=== PATIENT | male | born 1995 | race African-American/Black ===

== ENCOUNTER 2019-11-10 20:05 | Emergency (ER) | payer MEDICAID, OTHER ==
[~2019-11-10] VITALS: Ht 175.3 cm; Wt 61.2 kg
[2019-11-10 20:29] VITALS: BP 133/90
[2019-11-10] MEDS ORDERED: LORazepam 0.5 MG TAB PO ONE (22:30)
[2019-11-10 22:53] LABS: Basophils # (auto) 0.1 10 ^3/uL (0-0.2); Basophils % (auto) 2.1 % (0.0-2.0); Eosinophils # (auto) 0.1 10 ^3/uL (0-0.8); Eosinophils % (auto) 2.1 % (0.0-7.0); Hematocrit 44.1 % (41.0-53.0); Hemoglobin 15.3 g/dL (13.5-17.5); Lymphocytes # (auto) 1.4 10 ^3/uL (0.4-5.4); Lymphocytes % (auto) 31.8 % (10.0-50.0); Mean Corpuscular Hemoglobin 31.6 pg (28.0-32.0); Mean Corpuscular Hgb Conc. 34.6 g/dL (32.0-36.0); Mean Corpuscular Volume 91.3 fL (80.0-100.0); Monocytes # (auto) 0.6 10 ^3/uL (0-1.3); Monocytes % (auto) 13.4 % (0.0-12.0); Neutrophils # (auto) 2.3 10 ^3/uL (1.6-8.6); Neutrophils % (auto) 50.6 % (37.0-80.0); Nucleated Red Blood Cells % 0.2 %; Platelet Count (auto) 317 10^3/uL (140-450); Red Blood Cells 4.83 10^6/uL (4.5-5.90); Red Cell Distribution Width 11.9 % (11.8-14.3); White Blood Cell 4.5 10^3/uL (4.4-10.8)
[2019-11-10 23:11] LABS: Albumin 4.1 g/dL (3.4-5.0); Anion Gap 3 (5-15); Blood Urea Nitrogen 20 mg/dL (7-18); Calcium 9.5 mg/dL (8.5-10.1); Carbon Dioxide 30 mmol/L (21-32); Chloride 105 mmol/L (98-107); Potassium 3.6 mmol/L (3.5-5.1); Sodium 138 mmol/L (136-145)
[2019-11-10 23:19] LABS: Alanine Aminotransferase 24 U/L (16-61); Alkaline Phosphatase 90 U/L (45-117); Aspartate Aminotransferase 24 U/L (15-37); BUN/Creatinine Ratio 17.9; Bilirubin, Total 0.7 mg/dL (0.2-1.0); GFR African American 103 mL/min; GFR Non-African American 85 mL/min; Glucose 82 mg/dL (74-106); Total Protein 7.8 g/dL (6.4-8.2)
== END 2019-11-11 00:02 | disposition home or self-care (01) ==
LOC: ER 20:08
DX: F15.23 Other stimulant dependence with withdrawal (principal); F10.10 Alcohol abuse, uncomplicated; F41.9 Anxiety disorder, unspecified; J45.909 Unspecified asthma, uncomplicated; F32.9 Major depressive disorder, single episode, unspecified; Y90.9 Presence of alcohol in blood, level not specified
CPT/HCPCS: 36415; 71045; 80053; 84484; 85025; 93005

== ENCOUNTER 2021-09-27 10:53 | Emergency (ER) | payer MEDICAID ==
[~2021-09-27] VITALS: Ht 177.8 cm; Wt 2.6 kg
[2021-09-27 10:55] VITALS: BP 94/66
== END 2021-09-27 18:55 | disposition left against medical advice (07) ==
LOC: ER 10:53
DX: J02.9 Acute pharyngitis, unspecified (principal); Z53.21 Procedure and treatment not carried out due to patient leaving prior to being seen by health care provider

== ENCOUNTER 2022-09-11 14:11 | Emergency (ER) | payer MEDICAID ==
[~2022-09-11] VITALS: Ht 177.8 cm; Wt 68.7 kg
[2022-09-11 16:03] LABS: Basophils # (auto) 0.1 10 ^3/uL (0-0.2); Basophils % (auto) 0.9 % (0.0-2.0); Eosinophils # (auto) 0.1 10 ^3/uL (0-0.8); Eosinophils % (auto) 2.1 % (0.0-7.0); Hematocrit 44.4 % (41.0-53.0); Hemoglobin 14.9 g/dL (13.5-17.5); Lymphocytes % (auto) 29.9 % (10.0-50.0); Mean Corpuscular Hemoglobin 29.8 pg (28.0-32.0); Mean Corpuscular Hgb Conc. 33.6 g/dL (32.0-36.0); Mean Corpuscular Volume 88.8 fL (80.0-100.0); Monocytes # (auto) 0.9 10 ^3/uL (0-1.3); Monocytes % (auto) 13.3 % (0.0-12.0); Neutrophils # (auto) 3.6 10 ^3/uL (1.6-8.6); Neutrophils % (auto) 53.8 % (37.0-80.0); Nucleated Red Blood Cells % 0.1 %; Red Cell Distribution Width 13.5 % (11.8-14.3); White Blood Cell 6.7 10^3/uL (4.4-10.8)
[2022-09-11 16:19] LABS: Albumin 3.8 g/dL (3.4-5.0); Calcium 9.5 mg/dL (8.5-10.1); Potassium 3.5 mmol/L (3.5-5.1)
[2022-09-11 16:24] LABS: BUN/Creatinine Ratio 7.2 (10.0-20.0); Bilirubin, Total 0.4 mg/dL (0.2-1.0); Total Protein 8.3 g/dL (6.4-8.2)
[2022-09-11] MEDS ORDERED: CEPH-510 PO (17:10)
[2022-09-11 17:45] VITALS: BP 114/82
== END 2022-09-11 17:47 | disposition home or self-care (01) ==
LOC: ER 14:11
DX: L08.89 Other specified local infections of the skin and subcutaneous tissue (principal); F41.9 Anxiety disorder, unspecified; J45.909 Unspecified asthma, uncomplicated; F32.9 Major depressive disorder, single episode, unspecified; F10.20 Alcohol dependence, uncomplicated; F15.10 Other stimulant abuse, uncomplicated; Y90.9 Presence of alcohol in blood, level not specified
CPT/HCPCS: 36415; 80053; 85025

== ENCOUNTER 2024-07-22 10:14 | Emergency (ER) | payer MEDICAID ==
[~2024-07-22] VITALS: Ht 182.9 cm; Wt 67.7 kg
[~2024-07-22 10:14] MED LIST: CEPH-510 PO
[2024-07-22 10:37] VITALS: PULSE 100; RESP 14; O2SAT 99
[2024-07-22 11:54] LABS: Basophils # (auto) 0.1 10 ^3/uL (0-0.2); Basophils % (auto) 0.5 % (0.0-2.0); Eosinophils # (auto) 0 10 ^3/uL (0-0.8); Eosinophils % (auto) 0.1 % (0.0-7.0); Red Cell Distribution Width 13.4 % (11.8-14.3)
[2024-07-22 11:56] LABS: Hematocrit 39.9 % (41.0-53.0); Hemoglobin 13.7 g/dL (13.5-17.5); Lymphocytes # (auto) 1.5 10 ^3/uL (0.4-5.4); Lymphocytes % (auto) 8.8 % (10.0-50.0); Mean Corpuscular Hemoglobin 30.2 pg (28.0-32.0); Mean Corpuscular Hgb Conc. 34.5 g/dL (32.0-36.0); Mean Corpuscular Volume 87.7 fL (80.0-100.0); Monocytes # (auto) 2.6 10 ^3/uL (0-1.3); Monocytes % (auto) 15.3 % (0.0-12.0); Neutrophils # (auto) 12.8 10 ^3/uL (1.6-8.6); Neutrophils % (auto) 75.3 % (37.0-80.0); Platelet Count (auto) 489 10^3/uL (140-450); Red Blood Cells 4.55 10^6/uL (4.5-5.90); White Blood Cell 16.9 10^3/uL (4.4-10.8)
--- NOTE | 2024-07-22 12:05 | ED.PDOC ---
Psychiatric HPI Comments 28 y/o M, with PMHX of asthma, depression, and anxiety presents to the ED for CC of suicidal ideation. Patient states, he had a manic episode last night (07/21/24) due to situation crisis with his kids; which brought on his suicidal feelings. Patient relays, he was previously admitted at [facility] for past attempt last month (June 2024) . Patient endorses auditory hallucinations, causing him to want to walk into incoming traffic. Patient comments of using methamphetamines; does not recall last usage. Patient states last drink of alcohol was last night (07/21/24). Patient denies homicidal ideation or visual hallucinations. No other symptoms or modifying factors at this time. Chief Complaint: Suicidal Time Seen by MD: 11:35 Primary Care Provider: NONE Reviewed Notes: Nurses Notes, Medications, Allergies Information Source: Patient Mode of Arrival: Ambulatory Severity of Pain: None Severity of Mental Status: Moderate Severity of Symptoms: Moderate Timing: Days Duration: Since onset Prehospital treatment: None Presents with: Suicidal Ideation Ingestion: Drug(s) Ingested Circumstance: None Current substance abuse: Amphetamines History of: Depression, Anxiety Quality: Hallucinations Associated signs and symptoms: Anxiety, Hallucinations, ETOH, Amphetamines Past Medical History PAST MEDICAL HISTORY: Anxiety, Asthma, Depression Surgical History: Denies all surgeries Family History Family History: No family hx of Cancer, No family hx of DM, No family hx of Heart maura, No family hx of HTN, No family hx ofKidney maura, No family hx of Liver maura, No family hx of Lung maura, No family hx of Stroke Social History Smoker: Non-Smoker Alcohol: Heavy Drugs: Methamphetamine Lives In: Home Constitutional: denies: chills, diaphoresis, fatigue, fever, malaise, sweats, weakness, others EENTM: denies: blurred vision, double vision, ear bleeding, ear discharge, ear drainage, ear pain, ear ringing, eye pain, eye redness, hearing loss, mouth pain, mouth swelling, nasal discharge, nose bleeding, nose congestion, nose pain, photophobia, tearing, throat pain, throat swelling, voice changes, others Respiratory: denies: cough, hemoptysis, orthopnea, SOB at rest, shortness of breath, SOB with excertion, stridor, wheezing, others Cardiovascular: denies: chest pain, dizzy spells, diaphoresis, Dyspnea on exertion, edema, irregular heart beat, left arm pain, lightheadedness, palpitations, PND, syncope, others Gastrointestinal: denies: abdomen distended, abdominal pain, blood streaked bowels, constipated, diarrhea, dysphagia, difficulty swallowing, hematemesis, melena, nausea, poor appetite, poor fluid intake, rectal bleeding, rectal pain, vomiting, others Genitourinary: denies: burning, dysuria, flank pain, frequency, hematuria, incontinence, penile discharge, penile sore, pain, testicle pain, testicle swelling, urgency, others Neurological: denies: dizziness, fainting, headache, left sided numbness, left sided weakness, numbness, paresthesia, pre-existing deficit, right sided numbness, right sided weakness, seizure, speech problems, tingling, tremors, weakness, others Musculoskeletal: denies: back pain, gout, joint pain, joint swelling, muscle pain, muscle stiffness, neck pain, others Integumetry: denies: bruises, change in color, change in hair/nails, dryness, laceration, lesions, lumps, rash, wounds, others Allergic/Immunocompromised: denies: Difficulty Healing, Frequent Infections, Hives, Itching, others Hematologic/Lymphatic: denies: anemia, blood clots, easy bleeding, easy bruising, swollen glands, others Endocrine: denies: excessive hunger, excessive sweating, excessive thirst, excessive urination, flushing, intolerance to cold, intolerance to heat, unexplained weight gain, unexplained weight loss, others Psychiatric: reports: suicidal; denies: anxiety, bipolar disorder, depression, hopeless, panic disorder, schizophrenia, sleepless, others All Other Systems: Reviewed and Negative Physical Exam General Appearance: No Apparent Distress, Normal HEENT: Normal ENT Inspection, Pharynx Normal, TMs Normal Neck: Full Range of Motion, Non-Tender, Normal, Normal Inspection Respiratory: Chest Non-Tender, Lungs Clear, No Accessory Muscle Use, No Respiratory Distress, Normal Breath Sounds Cardiovascular: No Edema, No JVD, No Murmur, No Gallop, Normal Peripheral Pulses, Regular Rate/Rhythm Breast Exam: Deferred Gastrointestinal: No Organomegaly, Non Tender, No Pulsatile Mass, Normal Bowel Sounds, Soft Genitalia: Deferred Pelvic: Deferred Rectal: Deferred Extremities: No calf tenderness, Normal capillary refill, Normal inspection, Normal range of motion, Non-tender, No pedal edema Musculoskeletal : Apperance: Normal Neurologic: Alert, 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 Was a procedure done?: No Psych Differential Dx Psych. Differential Dx: Hopeless, Suicidal Suicidal Differential Dx: Alcohol Abuse, Substance Abuse X-Ray, Labs, Meds, VS Vital Signs Date Time Temp Pulse Resp B/P (MAP) Pulse Ox O2 Delivery O2 Flow Rate FiO2 07/23/24 19:40 92 18 93 Room Air* 0 21 07/23/24 19:40 98.5 92 18 109/71 (84) 93 98.5 07/23/24 17:14 98.4 82 16 93/54 (67) 96 98.4 07/23/24 15:00 Room Air* 0 07/23/24 04:37 18 Room Air* 0 07/23/24 00:00 98 16 99 Room Air* 0 07/22/24 23:59 98.2 98 19 127/67 (87) 99 98.2 07/22/24 23:27 18 94 Room Air* 0 07/22/24 20:39 62 16 99 Room Air* 0 07/22/24 19:45 98.9 62 16 122/64 (83) 99 98.9 07/22/24 17:40 100 14 99 Room Air* 0 07/22/24 10:37 100 14 99 Room Air* 0 07/22/24 10:37 98.2 100 18 127/85 (99) 99 98.2 07/22/24 10:15 98.5 112 16 110/86 (94) 96 Lab Test 07/22/24 11:48 07/22/24 10:27 Range/Units White Blood Count 16.9 H 4.4-10.8 10^3/uL Red Blood Count 4.55 4.5-5.90 10^6/uL Hemoglobin 13.7 13.5-17.5 g/dL Hematocrit 39.9 L 41.0-53.0 % Mean Corpuscular Volume 87.7 80.0-100.0 fL Mean Corpuscular Hemoglobin 30.2 28.0-32.0 pg Mean Corpuscular Hemoglobin Concent 34.5 32.0-36.0 g/dL Red Cell Distribution Width 13.4 11.8-14.3 % Platelet Count 489 H 140-450 10^3/uL Mean Platelet Volume 6.5 L 6.9-10.8 fL Neutrophils (%) (Auto) 75.3 37.0-80.0 % Lymphocytes (%) (Auto) 8.8 L 10.0-50.0 % Monocytes (%) (Auto) 15.3 H 0.0-12.0 % Eosinophils (%) (Auto) 0.1 0.0-7.0 % Basophils (%) (Auto) 0.5 0.0-2.0 % Neutrophils # (Auto) 12.8 H 1.6-8.6 10 ^3/uL Lymphocytes # (Auto) 1.5 0.4-5.4 10 ^3/uL Monocytes # (Auto) 2.6 H 0-1.3 10 ^3/uL Eosinophils # (Auto) 0 0-0.8 10 ^3/uL Basophils # (Auto) 0.1 0-0.2 10 ^3/uL Nucleated Red Blood Cells 0.0 % Sodium Level 137 136-145 mmol/L Potassium Level 3.9 3.5-5.1 mmol/L Chloride Level 101 98-107 mmol/L Carbon Dioxide Level 26 20-31 mmol/L Anion Gap 10 5-15 Blood Urea Nitrogen 13 9-23 mg/dL Creatinine 0.98 0.700-1.30 mg/dL Glomerular Filtration Rate Calc 107 >90 mL/min BUN/Creatinine Ratio 13.3 10.0-20.0 Serum Glucose 111 H 74-106 mg/dL Calcium Level 10.5 H 8.7-10.4 mg/dL Total Bilirubin 1.2 H 0.2-1.0 mg/dL Aspartate Amino Transferase (AST) 14 13-40 U/L Alanine Aminotransferase (ALT) < 9 7-40 U/L Alkaline Phosphatase 72 46-116 U/L Total Protein 8.7 H 5.7-8.2 g/dL Albumin 5.2 H 3.2-4.8 g/dL Plasma/Serum Blood Alcohol < 3.0 <10 mg/dL Urine Color Yellow Yellow Urine Clarity Clear Clear Urine pH 5.5 5.0-9.0 Urine Specific [place] 1.033 1.001-1.035 Urine Protein 1+ H Negative Urine Ketones Trace Negative Urine Blood Negative Negative /uL Urine Nitrite Negative Negative Urine Bilirubin Negative Negative Urine Urobilinogen Normal Negative mg/dL Urine Leukocyte Esterase Negative Negative /uL Urine RBC 1 0 - 3 /hpf Urine Microscopic WBC 1 0-3 /HPF Urine Squamous Epithelial Cells Few <5 /hpf Urine Bacteria None seen None Seen /hpf Urine Mucus Few None Seen Urine Glucose Normal Normal mg/dL Urine Opiates Screen Neg NEGATIVE Urine Fentanyl Screen Neg NEGATIVE Urine Barbiturates Screen Neg NEGATIVE Urine Phencyclidine Screen Neg NEGATIVE Urine Amphetamines Screen Pos NEGATIVE Urine Benzodiazepines Screen Neg NEGATIVE Urine Cocaine Screen Neg NEGATIVE Urine Cannabinoids Screen Pos NEGATIVE X-Ray, Labs, Meds, VS Comment This 28-year-old male presents to the emergency room with suicide ideation by running 2 traffic after using methamphetamine. Patient was seen by a psychiatric nurse practitioner She suggest place and person 5150 home versus reassess in the morning. The patient was positive for THC and methamphetamine. Endorses using both drugs recently. The patient will be observed until psych and place person on a 5150 hold versus reassess in the morning. Periods patient was signed out to the [facility] physician [id number] Jacquie Ferguson: I discussed the case with Dr. Hartman who evaluated the patient via video consultation. He stated the patient is stable for discharge from a psychiatric standpoint, however he is complaining of a cough and chest congestion. I re- evaluated the patient, who stated he has been coughing for a week and had cold sweats. He was not in any respiratory distress, oxygen saturation was normal on room air, and he was not febrile. Patient appears stable for discharge. I will provide a prescription for antibiotics, an inhaler, and Mucinex. Time of 1ST Reevaluation: 12:05 Reevaluation 1ST: Unchanged Patient Education/Counseling: Diagnosis, Treatment Family Education/Counseling: No Family Present Departure 1 Departure Time of Disposition: 20:45 Impression: Primary Impression: Substance abuse Additional Impression: Acute cough Disposition: 01 HOME / SELF CARE / HOMELESS Condition: Stable Additional Instructions: Follow-up with your primary doctor in 1-2 days. e-Prescriptions Guaifenesin (Mucinex) 600 Mg Tab 1 TAB PO BID PRN, #14 TAB prn cough/congestion Prov: MOLLY FRIEDMAN MD 07/23/24 Albuterol Sulfate (Albuterol Sulfate Hfa) 108 Mcg/Act Aer 2 PUFF IN Q4HP PRN, #1 AER Prov: MOLLY FRIEDMAN MD 07/23/24 Azithromycin (Zithromax Z-[place]) 250 Mg Tab 250 MG PO DAILY for 5 Days, #6 TAB Two tabs p.o. once, then 1 tab daily for the next 4 days Prov: MOLLY FRIEDMAN MD 07/23/24 Discharged With: Self Critical Care Note Critical Care Time?: No Stability Stability form required: No Heart Score Heart Score: Heart Score Response (Comments) Value History N/A 0 EKG N/A 0 Age N/A 0 Risk Factors N/A 0 Troponin N/A 0 Total 0 I personally scribed for GERSON LEWIS MD ([email or web address]) on 07/22/24 at 12:05. Electronically submitted by Elayne David ([employer] I personally scribed for GERSON LEWIS MD ([email or web address]) on 07/22/24 at 12:07. Electronically submitted by Elayne David ([employer]). I personally scribed for GERSON LEWIS MD ([email or web address]) on 07/22/24 at 12:09. Electronically submitted by Elayne David ([employer]). I personally scribed for GERSON LEWIS MD ([email or web address]) on 07/22/24 at 12:10. Electronically submitted by Elayne David ([email or web address]). I personally scribed for GERSON LEWIS MD ([email or web address]) on 07/22/24 at 12:17. Electronically submitted by Elayne David ([email or web address]). I personally scribed for GERSON LEWIS MD ([email or web address]) on 07/22/24 at 16:23. Electronically submitted by Elayne David ([employer] GERSON LEWIS MD Jul 22, 2024 12:05 MOLLY FRIEDMAN MD Jul 23, 2024 18:51
[2024-07-22 12:09] LABS: Alkaline Phosphatase 72 U/L (46-116); Anion Gap 10 (5-15); Aspartate Aminotransferase 14 U/L (13-40); BUN/Creatinine Ratio 13.3 (10.0-20.0); Blood Urea Nitrogen 13 mg/dL (9-23); Carbon Dioxide 26 mmol/L (20-31); Chloride 101 mmol/L (98-107); Potassium 3.9 mmol/L (3.5-5.1); Sodium 137 mmol/L (136-145)
[2024-07-22 12:10] LABS: Alanine Aminotransferase < 9 U/L (7-40); Albumin 5.2 g/dL (3.2-4.8); Blood Alcohol < 3.0 mg/dL (<10); Calcium 10.5 mg/dL (8.7-10.4); Glucose 111 mg/dL (74-106); Total Protein 8.7 g/dL (5.7-8.2)
[2024-07-22 12:14] LABS: Bilirubin, Total 1.2 mg/dL (0.2-1.0)
[2024-07-22 13:00] LABS: Urine Bacteria None Seen /hpf (None Seen)
[2024-07-22 13:12] LABS: Urine Blood Negative /uL (Negative); Urine Clarity Clear (Clear); Urine Color Yellow (Yellow); Urine Mucus FEW (None Seen); Urine Protein, UAD 1+ (Negative); Urine Specific Gravity 1.033 (1.001-1.035); Urine Squamous Epithelial Cell FEW /hpf (<5); Urine Urobilinogen Normal (Negative); Urine WBC 1 /HPF (0-3); Urine pH 5.5 (5.0-9.0)
[2024-07-22 13:17] LABS: Cannabinoid Screen, Urine Pos (NEGATIVE)
[2024-07-22 13:20] LABS: Amphetamine Screen, Urine Pos (NEGATIVE); Barbiturate Scree,Urine Neg (NEGATIVE); Benzodiazephine Screen, Urine Neg (NEGATIVE); Cocaine Screen, Urine Neg (NEGATIVE); Opiate Scree,Urine Neg (NEGATIVE); Phencyclidine Screen, Urine Neg (NEGATIVE)
[2024-07-22] MEDS: LORazepam 0.5 MG TAB PO ONE (16:27)
--- NOTE | 2024-07-22 17:16 | DVHINCON2 ---
Date of Service if different f: Jul 22, 2024 Consultation ([place]) Labs Laboratory Tests Test 07/22/24 10:27 07/22/24 11:48 Urine Color Yellow (Yellow) Urine Clarity Clear (Clear) Urine pH 5.5 (5.0-9.0) Urine Specific [place] 1.033 (1.001-1.035) Urine Protein 1+ (Negative) Urine Ketones Trace (Negative) Urine Blood Negative /uL (Negative) Urine Nitrite Negative (Negative) Urine Bilirubin Negative (Negative) Urine Urobilinogen Normal mg/dL (Negative) Urine Leukocyte Esterase Negative /uL (Negative) Urine RBC 1 /hpf (0 - 3) Urine Microscopic WBC 1 /HPF (0-3) Urine Squamous Epithelial Cells Few /hpf (<5) Urine Bacteria None seen /hpf (None Seen) Urine Mucus Few (None Seen) Urine Glucose Normal mg/dL (Normal) Urine Opiates Screen Neg (NEGATIVE) Urine Fentanyl Screen Neg (NEGATIVE) Urine Barbiturates Screen Neg (NEGATIVE) Urine Phencyclidine Screen Neg (NEGATIVE) Urine Amphetamines Screen Pos (NEGATIVE) Urine Benzodiazepines Screen Neg (NEGATIVE) Urine Cocaine Screen Neg (NEGATIVE) Urine Cannabinoids Screen Pos (NEGATIVE) White Blood Count 16.9 10^3/uL (4.4-10.8) Red Blood Count 4.55 10^6/uL (4.5-5.90) Hemoglobin 13.7 g/dL (13.5-17.5) Hematocrit 39.9 % (41.0-53.0) Mean Corpuscular Volume 87.7 fL (80.0-100.0) Mean Corpuscular Hemoglobin 30.2 pg (28.0-32.0) Mean Corpuscular Hemoglobin Concent 34.5 g/dL (32.0-36.0) Red Cell Distribution Width 13.4 % (11.8-14.3) Platelet Count 489 10^3/uL (140-450) Mean Platelet Volume 6.5 fL (6.9-10.8) Neutrophils (%) (Auto) 75.3 % (37.0-80.0) Lymphocytes (%) (Auto) 8.8 % (10.0-50.0) Monocytes (%) (Auto) 15.3 % (0.0-12.0) Eosinophils (%) (Auto) 0.1 % (0.0-7.0) Basophils (%) (Auto) 0.5 % (0.0-2.0) Neutrophils # (Auto) 12.8 10 ^3/uL (1.6-8.6) Lymphocytes # (Auto) 1.5 10 ^3/uL (0.4-5.4) Monocytes # (Auto) 2.6 10 ^3/uL (0-1.3) Eosinophils # (Auto) 0 10 ^3/uL (0-0.8) Basophils # (Auto) 0.1 10 ^3/uL (0-0.2) Nucleated Red Blood Cells 0.0 % Sodium Level 137 mmol/L (136-145) Potassium Level 3.9 mmol/L (3.5-5.1) Chloride Level 101 mmol/L (98-107) Carbon Dioxide Level 26 mmol/L (20-31) Anion Gap 10 (5-15) Blood Urea Nitrogen 13 mg/dL (9-23) Creatinine 0.98 mg/dL (0.700-1.30) Glomerular Filtration Rate Calc 107 mL/min (>90) BUN/Creatinine Ratio 13.3 (10.0-20.0) Serum Glucose 111 mg/dL (74-106) Calcium Level 10.5 mg/dL (8.7-10.4) Total Bilirubin 1.2 mg/dL (0.2-1.0) Aspartate Amino Transf (AST/SGOT) 14 U/L (13-40) Alanine Aminotransferase (ALT/SGPT) < 9 U/L (7-40) Alkaline Phosphatase 72 U/L (46-116) Total Protein 8.7 g/dL (5.7-8.2) Albumin 5.2 g/dL (3.2-4.8) Plasma/Serum Blood Alcohol < 3.0 mg/dL (<10) Appetite: Fair Appearance: Stated age, Disheveled Psychomotor activity: Restless Behavioral: Cooperative Eye contact: Limited Speech: Rapid Affect: Mood Congruent Mood: Anxious Thought processes: Linear/Goal-directed Suicidal ideations: Present (active) Homicidal ideations: Absent Orientation: Person, Place, Time, Situation Memory intact: Recent Intellect: Average Abstractability: WNL Concentration: Limited Attention: Limited Judgement: Poor Insight: Fair Vitals Vital Signs Date Time Temp Pulse Resp B/P (MAP) Pulse Ox O2 Delivery O2 Flow Rate FiO2 07/22/24 10:37 100 14 99 Room Air* 0 21 07/22/24 10:37 98.2 127/85 (99) 98.2 Treatment plan discussed: With staff Medication adjusted: Yes Diagnosis: unspecified psychosis r/o substance-induced, unspecified anxiety Plan : This is a 28-year-old male with prior hx of psychosis and polysubstance use. he reports suicidal ideation and command auditory hallucination recommend 5150hold for DTS V re-evaluation in AM to r/o substance-induced symptoms Recommend zyprexa 5mg po BID. History of Present Illness Reason for Consult : suicidal ideation HPI : This is a 28-year-old male with prior hx of psychosis, polysubstance use of methamphetamines, alcohol, marijuana and opiate use. He presents to the hospital reporting suicidal ideation. Patient is evaluated via telepsychiatry. He was very anxious, reported this began last night after he visited uncle. he did not specify what occurred at uncle's house. He also reports he was at [facility] and discharged yesterday and cannot return until after 30days. He is currently homeless. He reports feeling anxious, depressed. He is hearing voices saying " why I am doing this?" He also reports suicidal ideation with plan to walk into traffic. He denies homicidal ideation. He denies visual hallucinations. He reports paranoid thoughts. He has difficulty focusing on exam, shaking and standing up to walk to the door. He received Ativan 2mg 20 minutes prior to interview. Past Psychiatric History : he reports prior 5150holds and psych admissions. he denies prior suicide attempt. Although, per chart review, had prior suicide attempt in June of this year. He was prescribed Prozac, Trazodone, an seroquel in the past, unclear last dose. he denies current outpatient mental health follow up. Past Medical History : He reports hx of Asthma Social History : He is currently homeless, he was a [facility] [employer]. He used meth and marijuana today. He reports alcohol use last night. He has hx of fentanyl use reports being sober and using suboxone. He has unknown family history. He is unemployed. Unknown marital status. His toxicology is positive for meth and Thc. MARIELA MONTERO DNP Jul 22, 2024 17:16
[2024-07-22 17:40] VITALS: PULSE 100; RESP 14; O2SAT 99
[2024-07-22] MEDS: diphenhdrAMINE HCL 50 MG/1 ML VL IM ONE (17:52)
[2024-07-22 20:39] VITALS: PULSE 62; RESP 16; O2SAT 99
[2024-07-22] MEDS: ALBUTEROL SULF 2.5 MG/0.5ML(0.5%) NEB SOLN NEB ONE (23:27)
[2024-07-23] VITALS: PULSE 98; RESP 16; O2SAT 99
[2024-07-23] MEDS: traZODone HCL 50 MG TAB PO ONE (00:51)
[2024-07-23 04:37] VITALS: RESP 18
[2024-07-23] MEDS: OLANZapine 5 MG TAB PO SCH (10:10)
--- NOTE | 2024-07-23 18:32 | TELE.CONS ---
PSYCHIATRY REASSESSMENT Date: 07/23/241824 S: The patient was seen and evaluated at [facility] ED via telepsychiatry platform. 28 yr old male seen by PMHNP Jesica Go on 07/22 and diagnosed with Unspecified psychotic disorder and recommended for reassessment today. Today he reported that he feels like he did some bad weed which made him hallucinate and feel suicidal. Now he denied having any suicidal ideation, plan or intent. He denied having auditory or visual hallucinations. He noted that he feels comfortable being discharged. He reported he feels comfortable returning to his uncle's place where he lives. He noted he has a "chest cold" which can affect his asthma. MSE: alert and oriented speech-regular rate, rhythm and volume Mood-good Affect-cheerful, congruent. Tht process-linear and goal directed Tht Content-Denied having suicidal or homicidal ideation. Denied auditory or visual hallucinations. Insight-fair Judgment-fair Impulse control-fair. Diagnosis: Unspecified psychotic disorder; Meth use disorder; upper respiratory infection Assessment: This 28 yr old male appears to suffer from meth use disorder and psychosis. He is no longer suicidal and does not warrant psychiatric hospitalization. Plan: 1. Safety. The patient is psychologically cleared for discharge. 2. Legal-voluntary. 3. Medications-no medications indicated at this time. 4. Case discussed with ED physician Dr Dhillon. 5. Please contact psychiatry if further follow up or reevaluation is desired. Yes VINICIO NORMAN MD Jul 23, 2024 18:32
[2024-07-23] MEDS ORDERED: GUAI600T78 PO (18:51)
[2024-07-23] MEDS ORDERED: ALBU108A5 IN (18:51)
[2024-07-23] MEDS ORDERED: AZITTAB PO (18:51)
[2024-07-23 19:40] VITALS: BP 109/71; PULSE 92; RESP 18; TEMP 98.5; O2SAT 93
== END 2024-07-23 21:00 | disposition home or self-care (01) ==
LOC: ER 10:14
DX: F15.10 Other stimulant abuse, uncomplicated (principal); F29 Unspecified psychosis not due to a substance or known physiological condition; R45.851 Suicidal ideations; F41.9 Anxiety disorder, unspecified; F32.A Depression, unspecified; J45.909 Unspecified asthma, uncomplicated; Z91.51 Personal history of suicidal behavior; Z79.899 Other long term (current) drug therapy
CPT/HCPCS: 36415; 80053; 80307; 80320; 81001; 85025; 94640; 96372; 99285; J1200